=== PATIENT | female | born 1985 | race African-American/Black ===

== ENCOUNTER 2017-07-02 05:00 | Inpatient (IN) | payer OTHER ==
[2017-06-28 12:18] VITALS: BMI 25.6
[2017-07-02] MEDS ORDERED: ROPIVACAINE HCL 0.5% 30ML VIAL ONE (07:19)
[2017-07-02] MEDS ORDERED: MIDAZOLAM HCL 2 MG/2 ML SINGLE DOSE VIAL ONE ×2 (07:21)
[2017-07-02] MEDS ORDERED: VASOPRESSIN 20 UNITS/ML VIAL IV ONE (07:22)
[2017-07-02] MEDS ORDERED: HEPARIN NA (PORCINE) 5,000 UNITS/ML 1ML VIAL ONE (07:24)
[2017-07-02] MEDS ORDERED: PROPOFOL 20 ML ONE ×2 (08:23)
[2017-07-02] MEDS ORDERED: LIDOCAINE HCL/PF 2% SDV 5ML VIAL ONE (08:23)
[2017-07-02] MEDS ORDERED: ceFAZolin SODIUM 1 GM VIAL ONE ×2 (08:23→16:43)
[2017-07-02] MEDS ORDERED: ROCURONIUM BROMIDE 50 MG/5 ML VIAL ONE (08:24)
[2017-07-02] MEDS ORDERED: ceFAZolin SODIUM 1 GM VIAL IVPB ONE (08:35)
[2017-07-02] MEDS ORDERED: DEXAMETHASONE SOD PHOSPHATE 4 MG/1 ML VIAL ONE (09:01)
[2017-07-02] MEDS ORDERED: GLYCOPYRROLATE 0.2 MG/1 ML VIAL ONE (09:01)
[2017-07-02] MEDS ORDERED: NEOSTIGMINE METHYLSULFATE 0.5 MG/ML - 10 ML MDV ONE (09:01)
[2017-07-02] MEDS ORDERED: KETOROLAC TROMETHAMINE 30 MG/1 ML VIAL ONE (10:20)
[2017-07-02] MEDS ORDERED: HYDROmorphone HCL CARPU-JECT 1 MG/1 ML DISP.SYRIN IVPUSH PRN (10:52)
[2017-07-02] MEDS ORDERED: ONDANSETRON 4 MG/2 ML VIAL IVPUSH PRN ×2 (10:52→10:59)
[2017-07-02] MEDS ORDERED: ACETAMINOPHEN 1000 MG/100 ML VIAL (NON FORMULARY) IVPB PRN (10:53)
--- NOTE | 2017-07-02 10:53 | OP ---
Operative Note - Note: Operative Date: 07/02/17 Pre-Operative Diagnosis: leiomyoma of the uterus Operation: abdominal myomectomy Surgeon: Rachel Laboy [employer] Superintendent: Kayla Milton Anesthesiologist/GLUE MAKER BONE: Salome Shannon Anesthesia: General Specimens Removed: fibroids Estimated Blood Loss (mls): 170 Drains, Volume Out (mls): 200 (quinones) Fluid Volume Replaced (mls): 1,300 Operative Report Dictated: Yes
[2017-07-02] MEDS ORDERED: oxyCODONE HCL 5 MG TABLET PO PRN ×2 (10:57→10:58)
[2017-07-02] MEDS ORDERED: LACTATED RINGERS SOLUTION 1,000 ML IV SCH (11:00)
[2017-07-02] MEDS ORDERED: HYDROmorphone HCL CARPU-JECT 2 MG/1 ML DISP.SYRIN ONE (12:32)
[2017-07-02] MEDS ORDERED: HYDROmorphone HCL CARPU-JECT 2 MG/1 ML DISP.SYRIN IVPUSH ONE (12:35)
--- NOTE | 2017-07-02 13:26 | SURG ---
Surgery Powerhouse Engineer Note Powerhouse Engineer: Kayla Milton PA-C Date of Service: 07/02/17 Diagnosis: leiomyoma of the uterus Procedure: abdominal myomectomy I was present for the entirety of the operative procedure. For further detail, please refer to operative report. Visit type - Case Type Case Type: Scheduled Admission - Emergency Emergency Visit: No - New patient This patient is new to me today: Yes Date on this admission: 07/02/17 - Critical Care Critical Care patient: No
[2017-07-02] MEDS ORDERED: DEXTROSE 5%-WATER - 50 ML IVPB ONE (16:43)
[2017-07-02] MEDS: CEFAZOLIN 1 GM in DEXTROSE 5%-WATER - 50 ML IVPB SCH (16:49)
[2017-07-02] MEDS ORDERED: CEFAZOLIN 1 GM in DEXTROSE 5%-WATER - 100 ML IVPB SCH (17:00)
[2017-07-02 20:22] LABS: BASOPHIL 0.1 % (0-2.0); MCH 27.5 pg (25.7-33.7); MCHC 32.2 g/dl (32.0-36.0); MEAN CELL VOLUME 85.2 fl (80-96); MEAN PLT VOLUME 8.7 fl (7.5-11.1); NEUTROPHILS 89.7 % (42.8-82.8); PLATELET COUNT 242 K/MM3 (134-434); RDW 14.5 % (11.6-15.6)
[2017-07-02 20:39] LABS: ANION GAP 5 (8-16); CO2 27 mmol/L (21-32); CREATININE 0.6 mg/dL (0.55-1.02); GLUCOSE,RANDOM 107 mg/dL (74-106)
[2017-07-02] MEDS: LACTATED RINGERS SOLUTION 1,000 ML IV SCH ×2 (21:09→21:10)
[2017-07-02] MEDS: MONO LINYAH PO SCH (21:10)
[2017-07-02] MEDS ORDERED: PATIENT'S OWN MEDICATION (NON-FORMULARY) (Norgestimate-Ethinyl Estradiol [Mono-Linyah 28 T PO SCH (22:00)
[2017-07-02] MEDS: HYDROmorphone HCL CARPU-JECT 1 MG/1 ML DISP.SYRIN IVPB PRN (22:21)
[2017-07-03] MEDS ORDERED: DEXTROSE 5%-WATER - 50 ML IVPB ONE (00:48)
[2017-07-03] MEDS ORDERED: ceFAZolin SODIUM 1 GM VIAL ONE (00:48)
[2017-07-03] MEDS: CEFAZOLIN 1 GM in DEXTROSE 5%-WATER - 50 ML IVPB SCH (01:16)
[2017-07-03] MEDS: LACTATED RINGERS SOLUTION 1,000 ML IV SCH ×2 (06:07→14:02)
[2017-07-03 06:47] LABS: ANION GAP 5 (8-16); CALCIUM 7.8 mg/dL (8.5-10.1); CO2 28 mmol/L (21-32); CREATININE 0.5 mg/dL (0.55-1.02); GLUCOSE,RANDOM 91 mg/dL (74-106)
[2017-07-03 06:50] LABS: BASOPHIL 0.3 % (0-2.0); EOSINOPHIL 0.1 % (0-4.5); MCH 27.9 pg (25.7-33.7); MCHC 32.6 g/dl (32.0-36.0); MEAN CELL VOLUME 85.5 fl (80-96); MEAN PLT VOLUME 8.7 fl (7.5-11.1); NEUTROPHILS 72.4 % (42.8-82.8); PLATELET COUNT 202 K/MM3 (134-434); RDW 14.2 % (11.6-15.6); WHITE BLOOD COUNT 10.1 K/mm3 (4.0-10.0)
--- NOTE | 2017-07-03 08:11 | PN ---
Progress Note, Physician Chief Complaint: Pt. pain controlled, no GA complaints. - Current Medication List Current Medications: Active Medications Ferrous Sulfate (Feosol -) 325 mg PO DAILY ERICA Hydromorphone HCl (Dilaudid Injection -) 1 mg IVPB Q6H PRN PRN Reason: PAIN Last Admin: 07/02/17 22:21 Dose: 1 mg Lactated Ringer's (Lactated Ringers Solution) 1,000 mls @ 125 mls/hr IV ASDIR ERICA Last Admin: 07/03/17 06:07 Dose: 125 mls/hr [place]-Linyah 28 (N/F) 1 each PO HS ERICA Last Admin: 07/02/17 21:10 Dose: 1 each Ondansetron HCl (Zofran Injection) 4 mg IVPUSH Q6H PRN PRN Reason: NAUSEA AND/OR VOMITING Last Admin: 07/02/17 13:53 Dose: 4 mg Oxycodone HCl (Roxicodone -) 5 mg PO Q4H PRN PRN Reason: PAIN LEVEL 1-5 Oxycodone HCl (Roxicodone -) 10 mg PO Q4H PRN PRN Reason: PAIN LEVEL 6-10 Last Admin: 07/03/17 06:04 Dose: 10 mg - Objective Vital Signs: Vital Signs Temperature 98.8 F 07/03/17 06:00 Pulse Rate 98 H 07/03/17 06:00 Respiratory Rate 18 07/03/17 06:00 Blood Pressure 117/56 07/03/17 06:00 O2 Sat by Pulse Oximetry (%) 100 07/02/17 21:00 Constitutional: Yes: Well Nourished, No Distress, Calm Neurological: Yes: WNL, Alert, Oriented ...Motor Strength: WNL Labs: CBC, BMP 07/03/17 05:45 07/03/17 05:45 Assessment/Plan POD#1 s/p abdominal myomectomy under GA. Doing well. D/C from anesthesia care.
--- NOTE | 2017-07-03 09:14 | PN ---
Progress Note, Physician Chief Complaint: Post op History of Present Illness: 31 yo Para 0 status post abdominal myomectomy, seen and evaluated. She c/o incision pain. - Current Medication List Current Medications: Active Medications Ferrous Sulfate (Feosol -) 325 mg PO DAILY ERICA Hydromorphone HCl (Dilaudid Injection -) 1 mg IVPB Q6H PRN PRN Reason: PAIN Last Admin: 07/02/17 22:21 Dose: 1 mg Lactated Ringer's (Lactated Ringers Solution) 1,000 mls @ 125 mls/hr IV ASDIR ERICA Last Admin: 07/03/17 06:07 Dose: 125 mls/hr [place]-Linyah 28 (N/F) 1 each PO HS ERICA Last Admin: 07/02/17 21:10 Dose: 1 each Ondansetron HCl (Zofran Injection) 4 mg IVPUSH Q6H PRN PRN Reason: NAUSEA AND/OR VOMITING Last Admin: 07/02/17 13:53 Dose: 4 mg Oxycodone HCl (Roxicodone -) 5 mg PO Q4H PRN PRN Reason: PAIN LEVEL 1-5 Oxycodone HCl (Roxicodone -) 10 mg PO Q4H PRN PRN Reason: PAIN LEVEL 6-10 Last Admin: 07/03/17 06:04 Dose: 10 mg - Objective Vital Signs: Vital Signs Temperature 98.8 F 07/03/17 06:00 Pulse Rate 98 H 07/03/17 06:00 Respiratory Rate 18 07/03/17 06:00 Blood Pressure 117/56 07/03/17 06:00 O2 Sat by Pulse Oximetry (%) 100 07/02/17 21:00 Constitutional: Yes: Well Nourished Eyes: Yes: Conjunctiva Clear HENT: Yes: Atraumatic Neck: Yes: Supple, Trachea Midline Cardiovascular: Yes: Regular Rate and Rhythm Respiratory: Yes: Regular, CTA Bilaterally Gastrointestinal: Yes: Normal Bowel Sounds Genitourinary: Yes: Hernandez Present Breast(s): Yes: WNL Musculoskeletal: Yes: WNL Extremities: Yes: WNL Wound/Incision: Yes: Clean/Dry, Dressing Dry and Intact Neurological: Yes: Alert, Oriented ...Motor Strength: WNL Psychiatric: Yes: Alert, Oriented Labs: CBC, BMP 07/03/17 05:45 07/03/17 05:45 Problem List - Problems (1) Status post myomectomy Code(s): Z98.890 - OTHER SPECIFIED POSTPROCEDURAL STATES Assessment/Plan Status post abdominal myomectomy Ambulation Regular diet Analgesia as needed Continue post op care
[2017-07-03] MEDS: FERROUS SO4 325 MG TABLET (FP) PO SCH (09:28)
--- NOTE | 2017-07-03 09:35 | OP ---
DATE OF OPERATION: 07/02/2017 PREOPERATIVE DIAGNOSES: Leiomyomatous uterus, menorrhagia, anemia. OPERATION: Abdominal myomectomy. POSTOPERATIVE DIAGNOSES: Leiomyomatous uterus, menorrhagia, anemia. SURGEON: Rachel Laboy MD CORRECTION LIEUTENANT: CARL Greene ANESTHESIA: General. ANESTHESIOLOGIST: Marge Hedrick MD Cell Saver intraoperative. ESTIMATED BLOOD LOSS: 180 mL DESCRIPTION OF PROCEDURE: Patient was taken to the operating room, placed in supine position, prepped and draped in the usual sterile fashion. A timeout was performed in accordance with hospital regulation. Hernandez catheter was placed into the bladder. Pfannenstiel skin incision was made using a scalpel. Cautery was then used to go through the layers of abdominal wall to the level of the fascia. Fascia was cut in the midline, and cautery was then used to open the fascia in the following fashion. Jhon was then used to bluntly and sharply dissect the rectus muscle off the fascia. Muscle was split in the midline. Peritoneal cavity was then entered, carried upward and downward. The uterus was then exteriorized. Multiple myomas were noted. A large myoma about 7 cm located posterior and numerous myomas located throughout the endometrium, including the endometrial cavity. The endometrial cavity was eventually entered. Pitressin was infiltrated into the serosa. Tourniquet could not be placed due to the numerous myomas. A vertical posterior incision and anterior incision was made, and numerous myomas were removed. Endometrial cavity was entered. The large, 7-cm myoma was removed using blunt dissection and sharp dissection. Anterior myoma removed, 3 cm was removed. There were myomas noted in the cervical region, which were not removed due to the location near the bladder. The incision was closed using continuous locking with 0 Vicryl. Serosa was closed using V-Loc suture. Interrupted sutures were used to further maintain hemostasis. Blood could not be given back due to low volume of blood that was lost. After all incisions had been closed, which were numerous, figure-of-8 sutures were then done, and the uterus was hemostatic. Interceed was placed over the incisions, sewn on posteriorly and placed anteriorly. Uterus interiorized. Abdominal cavity cleaned with clean lap pads. Peritoneum closed using 0 Vicryl suture in a continuous fashion. Muscle approximated in the midline using 0 Vicryl. Fascia was closed in a continuous 0 Vicryl, 2 parts, continuous. Subcutaneous was closed using 0 Vicryl in interrupteds, and the skin was then closed using 4-0 Vicryl in subcuticular fashion. Wound was washed and dressed. Patient tolerated the procedure well and was taken to recovery room in stable condition. Pack count noted to be normal. Abdominal sweep had been done during the procedure. Antonieta [id number] MTDD
[2017-07-03] MEDS ORDERED: ENOXAPARIN NA (PORCINE) 30 MG/0.3 ML DISP.SYRIN SQ SCH ×2 (10:00)
[2017-07-03] MEDS ORDERED: PATIENT'S OWN MEDICATION (NON-FORMULARY) (Iron [Iron] 18 MG) PO SCH (10:00)
[2017-07-03] MEDS: HYDROmorphone HCL CARPU-JECT 1 MG/1 ML DISP.SYRIN IVPB PRN ×2 (11:35→21:45)
--- NOTE | 2017-07-03 13:45 | PATH ---
Surgical Pathology Report Patient Name: YENNY MARTINEZ [facility]. Rec. 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 Specimen(s) Received FIBROIDS Clinical History Leiomyoma of uterus Final Diagnosis UTERUS, MYOMECTOMY: LEIOMYOMATA, 284 GRAM AGGREGATE WEIGHT. Electronically Signed Curt Woodruff M.D. Gross Description Received in formalin labeled "fibroids," is a 284 g aggregate of abundant irregular nodules ranging from 1.0-7.5 cm in greatest dimension, consistent with fibroids. Sectioning reveals multiple foci of hemorrhage and necrosis. Travel Registered Nurse Nicu sections are submitted in 12 cassettes as follows: 1-4-largest fibroid; 5-7-second largest fibroid; 1-17-vbbgsil fibroids. /07/02/201707/02/2017
[2017-07-03] MEDS ORDERED: BISACODYL 10 MG SUPP.RECT RC ONE (19:30)
[2017-07-03] MEDS: MONO LINYAH PO SCH (21:30)
[2017-07-03] MEDS: SIMETHICONE 80 MG TAB.CHEW (FP) PO PRN (21:45)
[2017-07-04] MEDS: SIMETHICONE 80 MG TAB.CHEW (FP) PO PRN ×2 (05:24→09:31)
[2017-07-04] MEDS: IBUPROFEN 600 MG TABLET (FP) PO PRN ×2 (05:24→09:32)
[2017-07-04] MEDS: ACETAMINOPHEN 325 MG TABLET (FP) PO PRN ×2 (05:27→09:31)
[2017-07-04 06:20] VITALS: TEMP 98.2
[2017-07-04] MEDS: FERROUS SO4 325 MG TABLET (FP) PO SCH (09:31)
--- NOTE | 2017-07-04 10:21 | PN ---
Progress Note (SOAP) - Subjective Chief Complaint: Pt doing well + flatus no BM pt found ambulating well - Current Medications Current Medications: Active Medications Acetaminophen (Tylenol -) 650 mg PO Q4H PRN PRN Reason: FEVER OR PAIN Last Admin: 07/04/17 09:31 Dose: 650 mg Ferrous Sulfate (Feosol -) 325 mg PO DAILY [facility] Last Admin: 07/04/17 09:31 Dose: 325 mg Hydromorphone HCl (Dilaudid Injection -) 1 mg IVPB Q6H PRN PRN Reason: PAIN Last Admin: 07/03/17 21:45 Dose: 1 mg Lactated Ringer's (Lactated Ringers Solution) 1,000 mls @ 125 mls/hr IV ASDIR [facility] Last Admin: 07/03/17 14:02 Dose: 125 mls/hr Ibuprofen (Motrin -) 600 mg PO Q4H PRN PRN Reason: FEVER Last Admin: 07/04/17 09:32 Dose: 600 mg [place]-Linyah 28 (N/F) 1 each PO HS [facility] Last Admin: 07/03/17 21:30 Dose: 1 each Ondansetron HCl (Zofran Injection) 4 mg IVPUSH Q6H PRN PRN Reason: NAUSEA AND/OR VOMITING Last Admin: 07/02/17 13:53 Dose: 4 mg Oxycodone HCl (Roxicodone -) 5 mg PO Q4H PRN PRN Reason: PAIN LEVEL 1-5 Oxycodone HCl (Roxicodone -) 10 mg PO Q4H PRN PRN Reason: PAIN LEVEL 6-10 Last Admin: 07/03/17 06:04 Dose: 10 mg Simethicone (Mylicon -) 80 mg PO Q4H PRN Last Admin: 07/04/17 09:31 Dose: 80 mg - Objective Vital Signs: Vital Signs Temperature 98.2 F 07/04/17 06:00 Pulse Rate 93 H 07/04/17 06:00 Respiratory Rate 18 07/04/17 06:00 Blood Pressure 108/62 07/04/17 06:00 O2 Sat by Pulse Oximetry (%) 100 07/03/17 09:00 Constitutional: Yes: Well Nourished, No Distress Gastrointestinal: Yes: WNL, Normal Bowel Sounds Wound/Incision: Yes: Clean/Dry, Steri Strips, Open to air Neurological: Yes: WNL, Alert, Oriented Labs Lab Results: CBC, BMP 07/03/17 05:45 07/03/17 05:45 Assessment/Plan SP myomectomy POD2 doing well passing flatus Plan DC home rto 1 week iron daily
[2017-07-04 10:27] VITALS: BP 117/67; PULSE 99
--- NOTE | 2017-07-04 10:27 | DS ---
Physical Exam-SOLAR INSTALLATION MANAGER Vital Signs: Vital Signs Temperature 98.2 F 07/04/17 06:00 Pulse Rate 93 H 07/04/17 06:00 Respiratory Rate 18 07/04/17 06:00 Blood Pressure 108/62 07/04/17 06:00 O2 Sat by Pulse Oximetry (%) 100 07/03/17 09:00 Constitutional: Yes: Well Nourished, No Distress Gastrointestinal: Yes: WNL, Normal Bowel Sounds Extremities: Yes: WNL Edema: No Wound/Incision: Yes: Clean/Dry, Well Approximated, Steri Strips, Open to air Labs: CBC, BMP 07/03/17 05:45 07/03/17 05:45 Discharge Summary Reason For Visit: LEIOMYOMA OF UTERUS Current Active Problems Status post myomectomy (Acute) Procedures: Principal: abdominal myomectomy Hospital Course: unremarkable Condition: Good - Instructions Diet, Activity, Other Instructions: Dr. Rachel Laboy Wired Sweatband Cutter discharge instructions Physical activity Resume your normal everyday activity as tolerated no heavy lifting or exercise until seen by your surgeon. You may walk unlimited radha of and climb stairs. You may resume driving the car when you feel safe and comfortable behind the wheel. No sexual activity as instructed by Dr. Laboy. Wound care If you have a bandage, leave it on, and keep dry for 48-72 hours. After that time discard the outer bandage. If they are tapes on the skin under the out of bandage leave them in place. They will peel off in the next 7 to 10 days. Do Not Peel them off. You may shower the day after surgery. If there are tapes present on the skin, you may shower over them. Diet There are no dietary restrictions. Eat healthy, high-fiber foods. Drink 6 to 8 glasses of liquid each day. This will assist in keeping your bowels are regular. Pain management You may take Tylenol or acetaminophen or Ibuprofen (for example, Motrin, Advil etc.) from my pain prescription medication is ordered should be taken as prescribed for moderate to severe pain. Call Dr. Laboy for any of the following: Severe pain not relieved by medication Fever of 101 or higher Excessive bleeding or drainage on dressing Inability to urinate Call the office at [phone] for an appointment in seven days. Referrals: Rachel Laboy MD [Staff Physician] - Disposition: HOME - Home Medications Comprehensive Discharge Medication List: Ambulatory Orders Iron 18 mg PO DAILY 06/28/17 Norgestimate-Ethinyl Estradiol [[place]-Linyah] 1 each PO HS 06/28/17 Oxycodone HCl/Acetaminophen [Percocet 5-325 mg Tablet -] 1 tab PO Q4H #20 tablet MDD 6 07/03/17 Ibuprofen [Motrin -] 600 mg PO QID PRN #28 tablet 07/04/17
== END 2017-07-04 10:45 | disposition home or self-care (01) | DRG 743 ==
LOC: JSAMEDAYSX 05:00 → EDSTATUS 08:00 → J3W 13:01
PROVIDERS: ADMIT Obstetrics & Gynecology; ATTEND Obstetrics & Gynecology
PROC: 0UB90ZZ Excision of Uterus, Open Approach (ICD-10-PCS; principal; 2017-07-02 08:00)
DX: D25.9 Leiomyoma of uterus, unspecified (principal); N92.0 Excessive and frequent menstruation with regular cycle; D64.9 Anemia, unspecified
CPT/HCPCS: 36415; 80048; 84703; 85025; 88305-TC; 94010; 94760; J1644

== ENCOUNTER 2017-07-13 15:16 | Inpatient (IN) | payer OTHER ==
[2017-07-13] MEDS ORDERED: ONDANSETRON 4 MG/2 ML VIAL IVPUSH ONE (16:14)
[2017-07-13] MEDS ORDERED: SODIUM CHLORIDE 1,000 ML IV STA ×2 (16:14→17:39)
[2017-07-13] MEDS ORDERED: morphine CARPU-JECT 2 MG/1 ML DISP.SYRIN IVPUSH ONE ×2 (16:14→17:34)
--- NOTE | 2017-07-13 16:26 | PDOC ---
History of Present Illness - General Chief Complaint: Pain Stated Complaint: POST-SURG COMPLICATIONS Time Seen by Provider: 07/13/17 15:42 History Source: Patient Exam Limitations: No Limitations - History of Present Illness Initial Comments: 07/13/17 16:20 31 y.o. F with pmh of fibroids s/p myomectomy on 07/02/17 presenting with abdominal pain. Patient states last night she began having 8-9/10, sharp shooting, nonradiating lower abdominal pain around her incision site. Patient took ibuprofen and ciprofloxacin (she was prescribed for a UTI, today is her last day), with minimal relief. She woke up this morning with the same pain. Patient endorses chills, nausea, 6 episodes of emesis, few episodes of diarrhea (liquid), dysuria, as well as right lower back pain (flank pain), 1 episode of vaginal bleeding (1 pad, quarter size). Patient denies fever, chest pain, sob. PSH: myomectomy All: NKDA SH: Occasional alcohol PCP: Dr. Isabela Saucedo (not at [facility]) Past History - Past Medical History Allergies/Adverse Reactions: Allergies Allergy/AdvReac Type Severity Reaction Status Date / Time No Known Drug Allergies Allergy Verified 07/13/17 15:17 pineapple Allergy Verified 07/14/17 15:30 strawberry Allergy Verified 07/14/17 15:30 Home Medications: Ambulatory Orders Iron 18 mg PO DAILY 06/28/17 Norgestimate-Ethinyl Estradiol [[place]-Linyah] 1 each PO HS 06/28/17 Oxycodone HCl/Acetaminophen [Percocet 5-325 mg Tablet -] 1 tab PO Q4H #20 tablet MDD 6 07/03/17 Ibuprofen [Motrin -] 600 mg PO QID PRN #28 tablet 07/04/17 Anemia: Yes (PAST HISTORY) Asthma: No Cancer: No Cardiac Disorders: No CVA: No COPD: No CHF: No Dementia: No Diabetes: No GI Disorders: No Disorders: No HTN: No Hypercholesterolemia: No Liver Disease: No Seizures: No Thyroid Disease: No - Reproductive History Is Patient Now?: No - Suicide/Smoking/Psychosocial Hx Smoking History: Never smoked Have you smoked in the past 12 months: No Information on smoking cessation initiated: No Hx Alcohol Use: No Drug/Substance Use Hx: No Substance Use Type: Alcohol Hx Substance Use Treatment: No Review of Systems - Review of Systems Able to Perform ROS?: Yes Comments:: 07/13/17 16:23 GENERAL/CONSTITUTIONAL: No fever, + chills. No weakness. HEAD, EYES, EARS, NOSE AND THROAT: No change in vision. No ear pain or discharge. No sore throat. CARDIOVASCULAR: No chest pain or shortness of breath RESPIRATORY: No cough, wheezing, or hemoptysis. GASTROINTESTINAL: +nausea, +vomiting, +diarrhea, no constipation. +abdominal pain, +flank pain GENITOURINARY: +dysuria, No frequency, or change in urination. MUSCULOSKELETAL: No joint or muscle swelling or pain. No neck or back pain. SKIN: No rash NEUROLOGIC: No headache, vertigo, loss of consciousness, or change in strength/ sensation. ENDOCRINE: No increased thirst. No abnormal weight change HEMATOLOGIC/LYMPHATIC: No anemia, easy bleeding, or history of blood clots. ALLERGIC/IMMUNOLOGIC: No hives or skin allergy. *Physical Exam - Vital Signs Last Vital Signs Temp Pulse Resp BP Pulse Ox 98.6 F 98 H 18 112/67 100 07/13/17 15:18 07/13/17 15:18 07/13/17 15:18 07/13/17 15:18 07/13/17 15:18 - Physical Exam Comments: 07/13/17 16:24 GENERAL: Awake, alert, and fully oriented, in no acute distress HEAD: No signs of trauma, normocephalic, atraumatic EYES: PERRLA, EOMI, sclera anicteric, conjunctiva clear ENT: Auricles normal inspection, hearing grossly normal, nares patent, oropharynx clear without exudates. Moist mucosa NECK: Normal ROM, supple, no lymphadenopathy, JVD, or masses LUNGS: No distress, speaks full sentences, clear to auscultation bilaterally HEART: Regular rate and rhythm, normal S1 and S2, no murmurs, rubs or gallops, peripheral pulses normal and equal bilaterally. ABDOMEN: Soft, +tenderness around lower abdominal incision site (clean/dry/ intact), No erythema, No induration or fluctuance, , normoactive bowel sounds. No guarding, rebound. No masses. +right CVA tenderness EXTREMITIES: Normal inspection, Normal range of motion, no edema. No clubbing or cyanosis. NEUROLOGICAL: Cranial nerves II through XII grossly intact. Normal speech, normal gait, no focal sensorimotor deficits SKIN: Warm, Dry, normal turgor, no rashes or lesions noted. ED Treatment Course - LABORATORY CBC & Chemistry Diagram: 07/15/17 06:15 07/15/17 06:15 Medical Decision Making - Medical Decision Making 07/13/17 16:34 31 y.o. F with pmh of fibroids s/p myomectomy on 07/02/17 presenting with abdominal pain. Given hx/pe, differential includes Pyelonephritis, UTI, Abscess, Cellulitis Plan: CBC, CMP, Lipase, UA, Ucx, Coags, serum , T&S, Sx control, Blood cx. 07/13/17 17:54 wbc-17.4 Cr-2.7 07/13/17 18:45 Lactic acid 1.2 Patient signed out to Dr. Barger *DC/Admit/Observation/Transfer Diagnosis at time of Disposition: Complication of surgical procedure
[2017-07-13] MEDS ORDERED: morphine CARPU-JECT 2 MG/1 ML DISP.SYRIN ONE ×2 (16:36→17:37)
[2017-07-13] MEDS ORDERED: ONDANSETRON 4 MG/2 ML VIAL ONE (16:36)
[2017-07-13 16:55] LABS: EOSINOPHIL 0.1 % (0-4.5); MCH 27.4 pg (25.7-33.7); MCHC 31.9 g/dl (32.0-36.0); MEAN CELL VOLUME 85.9 fl (80-96); MEAN PLT VOLUME 8.4 fl (7.5-11.1); NEUTROPHILS 89.7 % (42.8-82.8); PLATELET COUNT 532 K/MM3 (134-434); WHITE BLOOD COUNT 17.4 K/mm3 (4.0-10.0)
[2017-07-13 16:58] LABS: URINE APPEARANCE CLOUDY; URINE BILIRUBIN NEGATIVE (NEGATIVE); URINE BLOOD 3+ (NEGATIVE); URINE COLOR LTYELLOW; URINE GLUCOSE (UA) NEGATIVE (NEGATIVE); URINE KETONE NEGATIVE (NEGATIVE); URINE NITRITE NEGATIVE (NEGATIVE); URINE UROBILINOGEN NEGATIVE mg/dL (0.2-1.0)
[2017-07-13 17:09] LABS: URINE PROTEIN 2+ (NEGATIVE)
[2017-07-13 17:17] LABS: INR 1.04 (0.82-1.09); PROTHROMBIN TIME (PATIENT) 11.8 SEC (9.98-11.88)
[2017-07-13 17:22] LABS: ALBUMIN 3.5 g/dl (3.4-5.0); ANION GAP 10 (8-16); CALCIUM 9.5 mg/dL (8.5-10.1); CO2 23 mmol/L (21-32); CREATININE 2.7 mg/dL (0.55-1.02); GLUCOSE,RANDOM 86 mg/dL (74-106); SGOT/AST 33 U/L (15-37); SGPT/ALT 76 U/L (12-78)
[2017-07-13 17:23] LABS: ALK PHOS 76 U/L (45-117); BILIRUBIN,TOTAL 0.4 mg/dL (0.2-1.0); TOT PROT 7.9 g/dl (6.4-8.2)
--- NOTE | 2017-07-13 17:35 | PDOC ---
Attending Attestation - Resident Resident Name: Mando Langstonl - ED Attending Attestation I have performed the following: I have examined & evaluated the patient, The case was reviewed & discussed with the resident, I agree w/resident's findings & plan, Exceptions are as noted - HPI HPI: 07/13/17 17:32 31 F with h/o fibroids s/p myomectomy 07/02/17, presenting with abdominal pain and vaginal discharge. Pt states that she has had persistent pain in her lower abdomen near the incision site since her surgery. It improved initially but yesterday the pain acutely worsened. She reports chills at home as well as 4 episodes of vomiting. She also notes bloody discharge from her vagina today. Denies any redness or drainage from the incision. - Physicial Exam PE: 07/13/17 17:44 "GENERAL: Awake, alert, and fully oriented, in no acute distress HEAD: No signs of trauma EYES: PERRLA, EOMI, sclera anicteric, conjunctiva clear ENT: Auricles normal inspection, hearing grossly normal, nares patent, oropharynx clear without exudates. Moist mucosa NECK: Nontender, no stepoffs, Normal ROM, supple, no lymphadenopathy, JVD, or masses LUNGS: Breath sounds equal, clear to auscultation bilaterally. No wheezes, and no crackles HEART: Regular rate and rhythm, normal S1 and S2, no murmurs, rubs or gallops ABDOMEN: low transverse surgical incision with no erythema or drainage, tender to palpation, no fluctuance noted EXTREMITIES: Normal range of motion, no edema. No clubbing or cyanosis. No cords, erythema, or tenderness NEUROLOGICAL: Cranial nerves II through XII intact. 5/5 strength and sensation in all extremities, Normal speech, normal gait SKIN: Warm, Dry, normal turgor, no rashes or lesions noted. " - Medical Decision Making 07/13/17 17:45 31 F with recent myomectomy presenting with abdominal pain, vaginal discharge, vomiting, concerning for endometritis vs post-op abscess/infection. - Labs - CTAP - IVF, abx 07/13/17 19:30 Pt found to have KUNAL of unclear etiology (possibly medication induced, pt is taking ibuprofen and cipro). CT non-con obtained, showing fat stranding around uterus. This finding, in addition to elevated WBC 17, raises concern for endometritis. Pt started on Unasyn. Dr. Rob, Ob rehabilitation inspector, aware of patient and agrees with plan to start abx. Pt admitted under Dr. Rob.
[2017-07-13 17:45] LABS: URINE BACTERIA FEW /hpf (NONE SEEN); URINE MUCUS RARE; URINE RBC 18 /hpf (0-3); URINE WBC 9 /hpf (3-5)
[2017-07-13 19:00] LABS: URINE LEUK ESTERASE Negative (NEGATIVE)
[2017-07-13] MEDS ORDERED: AMPICILLIN NA/SULBACTAM NA 3 GM in SODIUM CHLORIDE 100 ML IVPB ONE (19:24)
[2017-07-13] MEDS ORDERED: oxyCODONE HCL 5 MG TABLET PO PRN (19:32)
[2017-07-13] MEDS ORDERED: HYDROmorphone HCL CARPU-JECT 1 MG/1 ML DISP.SYRIN IVPB PRN (19:34)
[2017-07-13] MEDS: LACTATED RINGERS SOLUTION 1,000 ML IV SCH ×2 (19:45→23:18)
[2017-07-13] MEDS ORDERED: ACETAMINOPHEN 325 MG TABLET (FP) PO PRN (19:48)
[2017-07-13] MEDS: ONDANSETRON *ODT* 4 MG TABLET SL SCH (22:50)
[2017-07-14 00:08] VITALS: BMI 25.0
[2017-07-14] MEDS: ACETAMINOPHEN 325 MG TABLET (FP) PO PRN ×4 (00:24→19:54)
[2017-07-14] MEDS: AMPICILLIN NA/SULBACTAM NA 3 GM in SODIUM CHLORIDE 100 ML IVPB SCH ×4 (01:42→21:47)
[2017-07-14] MEDS: ONDANSETRON *ODT* 4 MG TABLET SL SCH ×4 (06:06→21:47)
[2017-07-14 07:26] LABS: BASOPHIL 0.6 % (0-2.0); EOSINOPHIL 0.6 % (0-4.5); MCH 27.1 pg (25.7-33.7); MCHC 31.5 g/dl (32.0-36.0); MEAN CELL VOLUME 86.1 fl (80-96); MEAN PLT VOLUME 7.8 fl (7.5-11.1); NEUTROPHILS 74.3 % (42.8-82.8); PLATELET COUNT 438 K/MM3 (134-434); RDW 14.6 % (11.6-15.6); WHITE BLOOD COUNT 13.2 K/mm3 (4.0-10.0)
[2017-07-14 07:38] LABS: ANION GAP 9 (8-16); CALCIUM 8.2 mg/dL (8.5-10.1); CO2 23 mmol/L (21-32); CREATININE 2.8 mg/dL (0.55-1.02); GLUCOSE,RANDOM 86 mg/dL (74-106)
[2017-07-14] MEDS: LACTATED RINGERS SOLUTION 1,000 ML IV SCH ×3 (08:06→21:47)
[2017-07-14] MEDS ORDERED: PT OWN MED DRAWER 7, Y5N ONE ×2 (08:48→21:04)
--- NOTE | 2017-07-14 09:32 | HP ---
Admitting History and Physical - Admission Chief Complaint: abdominal pain, nausea/ vomiting, chills History of Present Illness: 31 y/o with LMP 06/24/17 who is s/p abdominal myomectomy 07/02/17. Pt states that on 07/12/17 she started to have nausea and vomiting as well as chills and her abdominal pain worsened. Pt came to ED yesterday 07/13 was found to have an elevated WBC at 17.6, abdominal tenderness, and a CT scan showing possible uterine inflammation/post op changes, but no other acute pathology. Pt admitted with suspected endomyometritis. Upon admission pt also noted to have elevated BUN/Cr. History Source: Patient, Medical Record - Past Medical History Cardiovascular: No: CAD, HTN Pulmonary: No: Asthma, COPD Gastrointestinal: No: Constipation Hepatobiliary: No: Hepatitis B, Hepatitis C Renal/: No: Renal Failure, Renal Inusuff Reproductive: Yes: Fibroids. No: PID ...LMP: 06/17/17 ...: No Psych: No: Bipolar, Depression Endocrine: No: Diabetes Mellitus, Hyperthyroidism, Hypothyroidism - Past Surgical History Additional Past Surgical History: abdominal myomectomy on - Smoking History Smoking history: Never smoked Have you smoked in the past 12 months: No - Alcohol/Substance Use Hx Alcohol Use: No - Social History ADL: Independent History of Recent Travel: No Home Medications - Allergies Allergies/Adverse Reactions: Allergies Allergy/AdvReac Type Severity Reaction Status Date / Time [place] And Derivatives Allergy "ITCHY Verified 07/13/17 15:17 THROAT" No Known Drug Allergies Allergy Verified 07/13/17 15:17 - Home Medications Home Medications: Ambulatory Orders Iron 18 mg PO DAILY 06/28/17 Norgestimate-Ethinyl Estradiol [[place]-Linyah] 1 each PO HS 06/28/17 Oxycodone HCl/Acetaminophen [Percocet 5-325 mg Tablet -] 1 tab PO Q4H #20 tablet MDD 6 07/03/17 Ibuprofen [Motrin -] 600 mg PO QID PRN #28 tablet 07/04/17 Review of Systems - Review of Systems Constitutional: reports: Chills, Loss of Appetite. denies: Fever Eyes: reports: No Symptoms HENT: reports: No Symptoms Neck: reports: No Symptoms Cardiovascular: reports: No Symptoms Respiratory: reports: No Symptoms Gastrointestinal: reports: Abdominal Pain, Nausea, Vomiting Genitourinary: reports: Vaginal Bleeding (slight spotting). denies: Dysuria, Flank Pain Musculoskeletal: denies: Back Pain, Muscle Pain Neurological: denies: Change in LOC, Headache, Seizure Physical Examination Vital Signs: Vital Signs Temperature 98.5 F 07/14/17 05:41 Pulse Rate 77 07/14/17 05:41 Respiratory Rate 20 07/14/17 05:41 Blood Pressure 111/54 07/14/17 05:41 O2 Sat by Pulse Oximetry (%) 98 07/13/17 21:00 Constitutional: Yes: Well Nourished, No Distress, Calm Eyes: Yes: Conjunctiva Clear, EOM Intact HENT: Yes: Atraumatic, Normocephalic Neck: Yes: Supple, Trachea Midline Cardiovascular: Yes: Regular Rate and Rhythm Respiratory: Yes: Regular, CTA Bilaterally Gastrointestinal: Yes: Soft, Tenderness, Vomiting. No: Abdomen, Obese, Distention Extremities: Yes: WNL Edema: No Wound/Incision: Yes: Clean/Dry, Well Approximated Neurological: Yes: Alert, Oriented Psychiatric: Yes: Alert, Oriented Labs: CBC, BMP 07/14/17 06:00 07/14/17 06:00 Imaging - Results Cat Scan: Report Reviewed, Image Reviewed Problem List - Problems (1) Complication of surgical procedure Code(s): T81.9XXA - UNSPECIFIED COMPLICATION OF PROCEDURE, INITIAL ENCOUNTER Qualifiers: Surgical complication type: other Timing of complication: postoperative complication (2) Status post myomectomy Code(s): Z98.890 - OTHER SPECIFIED POSTPROCEDURAL STATES (3) Endometritis Code(s): N71.9 - INFLAMMATORY DISEASE OF UTERUS, UNSPECIFIED Assessment/Plan 31 y/o POD# 12 s/p abdominal myomectomy here for abdominal pain, chills at home , suspected endometritis - Afebrile - Leukocytosis, resolving - KUNAL, possibly due to vomiting/dehydration and NSAID use. Willl avoid NSAIDs for now, IV fluid hydration, will monitor. If no improvement on next lab check will get medicine input - endometritis - continue broad spectrum antibiotics, if pt remains afebrile in a.m. and leukocytosis improving, and able to tolerate PO antibiotics, may switch to oral antibiotics - continue current care
[2017-07-14 16:08] LABS: ANION GAP 12 (8-16); CALCIUM 8.7 mg/dL (8.5-10.1); CO2 23 mmol/L (21-32); CREATININE 2.4 mg/dL (0.55-1.02); GLUCOSE,RANDOM 98 mg/dL (74-106)
[2017-07-15] MEDS: AMPICILLIN NA/SULBACTAM NA 3 GM in SODIUM CHLORIDE 100 ML IVPB SCH (02:39)
[2017-07-15] MEDS: ONDANSETRON *ODT* 4 MG TABLET SL SCH ×3 (05:05→22:12)
[2017-07-15] MEDS: LACTATED RINGERS SOLUTION 1,000 ML IV SCH ×3 (05:10→22:13)
--- NOTE | 2017-07-15 07:23 | PN ---
Progress Note, Physician History of Present Illness: Pt seen/evaluated this a.m. Still with some abdominal pain and minimal appetite. Afebrile since admission. S/p 5 doses of Unasyn. Last night pt stated she had 4 episodes of diarrhea and now states she is unsure if pain is from pelvis or if is possibly GI in origin. 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 - Current Medication List Current Medications: Active Medications Acetaminophen (Tylenol -) 650 mg PO Q4H PRN PRN Reason: FEVER OR PAIN Last Admin: 07/14/17 19:54 Dose: 650 mg Acetaminophen (Tylenol -) 325 mg PO Q4H PRN PRN Reason: PAIN LEVEL 1-5 Hydromorphone HCl (Dilaudid Injection -) 1 mg IVPB Q4H PRN PRN Reason: PAIN Lactated Ringer's (Lactated Ringers Solution) 1,000 mls @ 125 mls/hr IV ASDIR [facility] Last Admin: 07/15/17 05:10 Dose: 125 mls/hr Ondansetron HCl (Zofran Odt -) 8 mg SL TID [facility] Last Admin: 07/15/17 05:05 Dose: 8 mg Oxycodone HCl (Roxicodone -) 5 mg PO Q4H PRN PRN Reason: PAIN LEVEL 1-5 Last Admin: 07/14/17 00:23 Dose: 5 mg - Objective Vital Signs: Vital Signs Temperature 98.5 F 07/15/17 06:13 Pulse Rate 75 07/15/17 06:13 Respiratory Rate 18 07/15/17 06:13 Blood Pressure 124/83 07/15/17 06:13 O2 Sat by Pulse Oximetry (%) 98 07/14/17 21:00 Constitutional: Yes: Well Nourished, No Distress, Calm Eyes: Yes: Conjunctiva Clear, EOM Intact HENT: Yes: Atraumatic, Normocephalic Neck: Yes: Supple, Trachea Midline Cardiovascular: Yes: Regular Rate and Rhythm Respiratory: Yes: Regular, CTA Bilaterally Gastrointestinal: Yes: Normal Bowel Sounds, Soft, Tenderness. No: Distention, Palpable Mass, Vomiting Genitourinary: Yes: Vaginal Bleeding (slight VB) Wound/Incision: Yes: Clean/Dry, Well Approximated Neurological: Yes: Alert, Oriented Psychiatric: Yes: Alert, Oriented Labs: CBC, BMP 07/14/17 06:00 07/14/17 14:50 INR, PTT INR 1.04 (0.82-1.09) 07/13/17 16:40 Problem List - Problems (1) Complication of surgical procedure Code(s): T81.9XXA - UNSPECIFIED COMPLICATION OF PROCEDURE, INITIAL ENCOUNTER Qualifiers: Surgical complication type: other Timing of complication: postoperative complication (2) Status post myomectomy Code(s): Z98.890 - OTHER SPECIFIED POSTPROCEDURAL STATES (3) Endometritis Code(s): N71.9 - INFLAMMATORY DISEASE OF UTERUS, UNSPECIFIED Assessment/Plan 31 y/o POD# 13 s/p abdominal myomectomy here for abdominal pain, chills at home , suspected endometritis now with loose stools/diarrhea - Afebrile - Leukocytosis, resolving - KUNAL, possibly due to vomiting/dehydration and NSAID use. Willl avoid NSAIDs for now, IV fluid hydration. BUN/CR improved on yesterday PM labs. Will continue to monitor. - possible endometritis - continue broad spectrum antibiotics, will switch to PO antibiotics today to see if pt can tolerate. If able to tolerate and remains afebrile will consider discharge planning - diarrhea/loose stools. ? due to antibiotics? If continues may need to evaluate for GI etiology of pain - continue current care
[2017-07-15 07:38] LABS: BASOPHIL 0.7 % (0-2.0); EOSINOPHIL 1.2 % (0-4.5); MCH 27.6 pg (25.7-33.7); MCHC 32.7 g/dl (32.0-36.0); MEAN CELL VOLUME 84.6 fl (80-96); MEAN PLT VOLUME 7.9 fl (7.5-11.1); NEUTROPHILS 75.2 % (42.8-82.8); PLATELET COUNT 414 K/MM3 (134-434); RDW 14.4 % (11.6-15.6); WHITE BLOOD COUNT 10.2 K/mm3 (4.0-10.0)
[2017-07-15 08:10] LABS: ANION GAP 11 (8-16); CALCIUM 8.5 mg/dL (8.5-10.1); CO2 24 mmol/L (21-32); CREATININE 1.7 mg/dL (0.55-1.02); GLUCOSE,RANDOM 89 mg/dL (74-106)
[2017-07-15] MEDS: AMOX TR/POT CLAV 875MG/125MG TABLETS (FP) PO SCH ×2 (09:53→17:26)
[2017-07-15] MEDS: metroNIDAZOLE 250 MG TABLET PO SCH (22:12)
[2017-07-16] MEDS: metroNIDAZOLE 250 MG TABLET PO SCH ×2 (05:57→14:21)
[2017-07-16] MEDS: LACTATED RINGERS SOLUTION 1,000 ML IV SCH (05:57)
[2017-07-16] MEDS: ONDANSETRON *ODT* 4 MG TABLET SL SCH ×2 (05:58→14:21)
[2017-07-16] MEDS: ACETAMINOPHEN 325 MG TABLET (FP) PO PRN ×2 (06:17→11:52)
[2017-07-16 07:31] LABS: MCH 27.8 pg (25.7-33.7); MCHC 32.8 g/dl (32.0-36.0); MEAN CELL VOLUME 84.8 fl (80-96); MEAN PLT VOLUME 8.1 fl (7.5-11.1); NEUTROPHILS 62.8 % (42.8-82.8); PLATELET COUNT 379 K/MM3 (134-434); RDW 14.4 % (11.6-15.6); WHITE BLOOD COUNT 7.5 K/mm3 (4.0-10.0)
[2017-07-16 07:53] LABS: ANION GAP 8 (8-16); CALCIUM 8.2 mg/dL (8.5-10.1); CO2 26 mmol/L (21-32); CREATININE 1.3 mg/dL (0.55-1.02); GLUCOSE,RANDOM 93 mg/dL (74-106)
[2017-07-16 15:56] VITALS: PULSE 58
--- NOTE | 2017-07-16 17:26 | DS ---
Physical Examination Vital Signs: Vital Signs Temperature 97.8 F 07/16/17 15:54 Pulse Rate 58 L 07/16/17 15:54 Respiratory Rate 18 07/16/17 09:27 Blood Pressure 124/78 07/16/17 09:27 O2 Sat by Pulse Oximetry (%) 100 07/16/17 09:27 Constitutional: Yes: Well Nourished Labs: CBC, BMP 07/16/17 05:35 07/16/17 05:35 Discharge Summary Reason For Visit: ENDOMETRITIS Current Active Problems Complication of surgical procedure (Acute) Endometritis (Acute) Procedures: Principal: IV antibiotics Hospital Course: Pt admitted to [facility] with suspected endomyometritis on 07/13/17. Upon admission was also found to have Acute Kidney Injury due to dehydration. Pt received IV antibiotics and had improvement in Leukocytosis and IV fluids to aid in KUNAL. The Unasyn did result in gastrointestinal upset/diarrhea and the antibiotics were discontinued. The patient was then changed to Oral antibiotics and discharged home in stable condition on 07/16/17. Condition: Good - Instructions Diet, Activity, Other Instructions: Dr. Rachel Laboy Info Specialist discharge instructions Physical activity Resume your normal everyday activity as tolerated. You may walk unlimited amounts of and climb stairs. You may resume driving the car when you feel safe and comfortable behind the wheel. No sexual activity as instructed by Dr. Laboy. Diet There are no dietary restrictions. Eat healthy, high-fiber foods. Drink 6 to 8 glasses of liquid each day. This will assist in keeping your bowels are regular. You must remain hydrated. Pain management You may take your home medication and any new prescribed medication as directed. Call Dr. Laboy for any of the following: Severe pain not relieved by medication Fever of 101 or higher Excessive bleeding or drainage on dressing Inability to urinate Call the office at [phone] for an appointment in 14 days. Referrals: Rachel Laboy MD [Primary Care Provider] - Disposition: HOME - Home Medications Comprehensive Discharge Medication List: Ambulatory Orders Iron 18 mg PO DAILY 06/28/17 Norgestimate-Ethinyl Estradiol [[place]] 1 each PO HS 06/28/17 Oxycodone HCl/Acetaminophen [Percocet 5-325 mg Tablet -] 1 tab PO Q4H #20 tablet MDD 6 07/03/17 Ibuprofen [Motrin -] 600 mg PO QID PRN #28 tablet 07/04/17 Metronidazole 500 mg PO BID #12 tablet MDD 2 07/16/17
[2017-07-16 19:17] VITALS: BP 156/77; TEMP 98.5
== END 2017-07-16 19:15 | disposition home or self-care (01) | DRG 920 ==
LOC: JER 15:16 → JERBED 19:59 → J7W 22:19
PROVIDERS: ADMIT Obstetrics & Gynecology; ATTEND Obstetrics & Gynecology
DX: T81.89XA Other complications of procedures, not elsewhere classified, initial encounter (principal); N17.9 Acute kidney failure, unspecified; N71.0 Acute inflammatory disease of uterus; Y83.9 Surgical procedure, unspecified as the cause of abnormal reaction of the patient, or of later complication, without mention of misadventure at the time of the procedure; E86.0 Dehydration; D72.829 Elevated white blood cell count, unspecified
CPT/HCPCS: 36415; 74176-TC; 80048; 80053; 81003; 81015; 83605; 83690; 84703; 85025; 85610; 85730; 86850; 86900; 86901; 87040; 87045; 87046; 87086; 87324; 87449; 99285-25